=== PATIENT | female | born 1990 | race Caucasian/White ===

== ENCOUNTER 2017-10-21 11:28 | Emergency (ER) | payer MEDICAID ==
[~2017-10-21] VITALS: Ht 167.6 cm; Wt 122.0 kg
[~2017-10-21 11:28] MED LIST: ALBU18HF2 IH; ALBU18HF2 INH; CIPR2.5D18 OP; CYCL-1 PO; MEDR10TA PO; MUPI15CR TP; NO HOME MEDS; ORPH100T2 PO; PHEN-716 PO; TRAM50TA2 PO; VAL5T PO; ZOF4T PO
[2017-10-21] MEDS ORDERED: ketorolac trometh inj. 60 MG/2 ML VIAL IM ONE (12:30)
[2017-10-21] MEDS ORDERED: TRAM50TA2 PO (12:30)
[2017-10-21] MEDS ORDERED: CYCL-1 PO (12:30)
[2017-10-21] MEDS ORDERED: DICL50TA8 PO (12:30)
[2017-10-21 12:59] VITALS: BP 136/78
== END 2017-10-21 13:02 | disposition home or self-care (01) ==
LOC: ER 11:29
DX: M54.5 Low back pain (principal); G89.29 Other chronic pain; J45.909 Unspecified asthma, uncomplicated; Z98.890 Other specified postprocedural states; Z88.0 Allergy status to penicillin; Z79.899 Other long term (current) drug therapy
CPT/HCPCS: 96372; 99283; J1885

== ENCOUNTER 2017-11-30 11:42 | Emergency (ER) | payer MEDICAID ==
[~2017-11-30] VITALS: Ht 578.2 cm; Wt 117.5 kg
[~2017-11-30 11:42] MED LIST changes: +DICL50TA8 PO
[2017-11-30 11:47] VITALS: BP 170/99
[2017-11-30] MEDS ORDERED: ketorolac trometh inj. 60 MG/2 ML VIAL IM ONE (13:05)
[2017-11-30] MEDS ORDERED: CYCL-1 PO (13:06)
== END 2017-11-30 13:37 | disposition home or self-care (01) ==
LOC: ER 11:42
DX: M54.5 Low back pain (principal); G89.29 Other chronic pain; J45.909 Unspecified asthma, uncomplicated; Z98.890 Other specified postprocedural states; Z88.0 Allergy status to penicillin; Z79.899 Other long term (current) drug therapy
CPT/HCPCS: 96372; 99283; J1885

== ENCOUNTER 2019-04-16 17:59 | Emergency (ER) | payer MEDICAID ==
[~2019-04-16] VITALS: Ht 175.3 cm; Wt 113.6 kg
[2019-04-16 18:06] VITALS: BP 127/89
[2019-04-16] MEDS ORDERED: CEFD300C3 PO (18:56)
== END 2019-04-16 19:04 | disposition home or self-care (01) ==
LOC: ER 18:00
DX: J32.9 Chronic sinusitis, unspecified (principal); J45.909 Unspecified asthma, uncomplicated; G89.29 Other chronic pain; Z98.890 Other specified postprocedural states; Z88.0 Allergy status to penicillin; Z79.899 Other long term (current) drug therapy
CPT/HCPCS: 99283

== ENCOUNTER 2021-04-28 23:35 | Emergency (ER) | payer MEDICAID ==
[~2021-04-28] VITALS: Ht 167.6 cm; Wt 122.7 kg
[~2021-04-28 23:35] MED LIST changes: -CIPR2.5D18 OP; +CIPR2.5D21 OP; +DIAZ5TAB22 PO; -VAL5T PO
[2021-04-28 23:41] VITALS: BP 131/77
[2021-04-29] MEDS ORDERED: HYDROcodone/acetaminophen 10/325mg tab PO ONE (01:55)
[2021-04-29] MEDS ORDERED: HYDR-3972 PO (02:01)
[2021-04-29] MEDS ORDERED: IBUP-1986 PO (02:01)
== END 2021-04-29 02:24 | disposition home or self-care (01) ==
LOC: ER 23:36
DX: S49.91XA Unspecified injury of right shoulder and upper arm, initial encounter (principal); W18.39XA Other fall on same level, initial encounter; Y93.89 Activity, other specified; Y92.89 Other specified places as the place of occurrence of the external cause; Y99.8 Other external cause status
CPT/HCPCS: 73030; 99283

== ENCOUNTER 2022-04-28 01:00 | Emergency (ER) | payer MEDICAID ==
[~2022-04-28] VITALS: Ht 167.6 cm; Wt 270.0 kg
[~2022-04-28 01:00] MED LIST changes: +IBUP-1986 PO
[2022-04-28 01:03] VITALS: BP 147/93
== END 2022-04-28 11:43 | disposition left against medical advice (07) ==
LOC: ER 01:01
DX: T78.40XA Allergy, unspecified, initial encounter (principal); Z53.21 Procedure and treatment not carried out due to patient leaving prior to being seen by health care provider; Y92.89 Other specified places as the place of occurrence of the external cause

== ENCOUNTER 2023-02-07 23:11 | Emergency (ER) | payer MEDICAID ==
[~2023-02-07] VITALS: Ht 167.6 cm; Wt 122.7 kg
[~2023-02-07 23:11] MED LIST changes: -ORPH100T2 PO; +ORPH100T4 PO
[2023-02-07 23:29] VITALS: BP 171/108; PULSE 79; RESP 14; TEMP 98.7; O2SAT 100
[2023-02-08] MEDS ORDERED: cephalexin 250mg capsule PO ONE (01:05)
[2023-02-08] MEDS ORDERED: CEPH250T PO (01:05)
[2023-02-08] MEDS ORDERED: ondansetron 4mg rapidly disintigrating tab PO ONE (01:05)
== END 2023-02-08 01:30 | disposition home or self-care (01) ==
LOC: ER 23:11
DX: L03.116 Cellulitis of left lower limb (principal); J45.909 Unspecified asthma, uncomplicated; G89.29 Other chronic pain; Z79.899 Other long term (current) drug therapy; Z79.2 Long term (current) use of antibiotics; Z88.0 Allergy status to penicillin
CPT/HCPCS: 99284

== ENCOUNTER 2024-07-18 13:04 | Emergency (ER) | payer MEDICAID ==
[~2024-07-18] VITALS: Ht 167.6 cm; Wt 119.5 kg
[2024-07-18 14:00] LABS: BASOPHILS % (AUTO) 0.5 % (0-1); EOSINOPHILS # (AUTO) 0.3 X10'3 (0-0.9); EOSINOPHILS % (AUTO) 3.6 % (0-6); HEMOGLOBIN 12.7 g/dl (12.0-16.0); LYMPHOCYTES % (AUTO) 30.5 % (21-51); MEAN CORPUSCULAR HGB CONC 34.4 g/dL (33.0-36.5); MEAN CORPUSCULAR VOLUME 93.1 FL (78-98); MEAN PLATELET VOLUME 10.4 FL (7.4-10.4); MONOCYTES # (AUTO) 0.5 X10'3 (0-0.9); MONOCYTES % (AUTO) 5.1 % (2-12); NEUTROPHILS # (AUTO) 5.9 X10'3 (1.8-7.7); NEUTROPHILS % (AUTO) 60.3 % (42-75); PLATELET COUNT 240 X10'3 (140-440); RED BLOOD COUNT 3.98 X10'6 (4.20-5.60); RED CELL DISTRIBUTION WIDTH 13.4 % (11.5-14.5); WHITE BLOOD COUNT 9.7 X10'3 (4.5-11.0)
[2024-07-18 14:26] LABS: ALANINE AMINOTRANSFERASE 28 U/L (12-78); ALBUMIN 3.6 G/DL (3.4-5.0); ALBUMIN/GLOBULIN RATIO 1.1 (1.1-1.5); ALKALINE PHOSPHATASE 92 IU/L (46-116); ANION GAP 6 (8-16); ASPARTATE AMINO TRANSFERASE 15 U/L (10-37); BILIRUBIN,TOTAL 0.3 MG/DL (0.1-1.0); BLOOD UREA NITROGEN 7 MG/DL (7-18); CHLORIDE 107 MMOL/L (99-107); GLUCOSE 93 MG/DL (70-104); LIPASE 60 U/L (16-77); POTASSIUM 4.1 MMOL/L (3.5-5.1); SODIUM 143 MMOL/L (135-145); TOTAL CARBON DIOXIDE 29.8 MMOL/L (24-32); eCRCL 105 ML/MIN; eGFR > 90 ML/MIN
[2024-07-18 14:40] LABS: BILIRUBIN,URINE NEGATIVE (Neg); CLARITY,URINE CLEAR (Clear); COLOR,URINE YELLOW (Yellow); GLUCOSE, URINE NEGATIVE (Neg); KETONES,URINE NEGATIVE (Neg); LEUKOCYTE ESTERASE ,URINE NEGATIVE (Neg); NITRITES, URINE NEGATIVE (Neg); OCCULT BLOOD,URINE NEGATIVE (Neg); PH,URINE 6.5 (4.8-8.0); PROTEIN,URINE NEGATIVE (Neg); UROBILINOGEN,URINE 0.2 E.U/dL (0.2-1.0)
[2024-07-18 14:43] LABS: UA COLLECTION TYPE CLN CATCH MIDSTREAM
[2024-07-18 14:49] LABS: URINE HCG NEGATIVE (NEG)
[2024-07-18 16:01] VITALS: BP 134/75; PULSE 59; TEMP 98.1; O2SAT 99
[2024-07-18] MEDS: HYDROcodone/acetaminophen 10/325mg tab PO ONE (17:11)
[2024-07-18 17:12] VITALS: RESP 16
[2024-07-18] MEDS: ketorolac trometh 30MG/ML vial 30 MG/ML VIAL IM ONE (17:12)
[2024-07-18] MEDS ORDERED: NAPR-996 PO (17:52)
[2024-07-18] MEDS ORDERED: HYDR-3965 PO (17:52)
== END 2024-07-18 18:05 | disposition home or self-care (01) ==
LOC: ER 13:04
DX: S22.089A Unspecified fracture of T11-T12 vertebra, initial encounter for closed fracture (principal); J45.909 Unspecified asthma, uncomplicated; F31.9 Bipolar disorder, unspecified; Z88.0 Allergy status to penicillin; Z98.890 Other specified postprocedural states; W19.XXXA Unspecified fall, initial encounter; Y93.89 Activity, other specified; Y92.89 Other specified places as the place of occurrence of the external cause; Y99.8 Other external cause status
CPT/HCPCS: 36415; 72100; 80053; 81003; 81025; 83690; 85025; 96372; 99284; J1885

== ENCOUNTER 2025-04-20 13:58 | Emergency (ER) | payer MEDICAID ==
[~2025-04-20] VITALS: Ht 167.6 cm; Wt 110.4 kg
[~2025-04-20 13:58] MED LIST changes: +NAPR-1168 PO
--- NOTE | 2025-04-20 14:09 | ELECTROCARDIOGRAPH REPORT ---
[facility] Test Date: 2025-04-20 Test Time: 14:02:58 Pat Name: DELORIS SAUCEDA Department: EMERGENCY ROOM [id number] Room: Gender: F Chart Calculator: MAG : 1990 Requested By: TALIA BARBA Order Number: [id number] Reading MD: Dr. VONDA Severino Measurements Intervals [place] Rate: 65 P: 58 IN: 151 QRS: 44 QRSD: 101 T: 17 QT: 387 QTc: 403 Interpretive Statements Sinus arrhythmia Low voltage, precordial leads Baseline wander in lead(s) II Electronically Signed On 04-21-2025 11:48:[address] VONDA Severino Please click the below link to view image of tracing.
[2025-04-20 14:41] LABS: MEAN PLATELET VOLUME 10.4 FL (7.4-10.4); RED CELL DISTRIBUTION WIDTH 12.8 % (11.5-14.5)
[2025-04-20 15:00] LABS: CREATININE 0.71 MG/DL (0.40-0.90); PRO BRAIN NATRIURETIC PEPTIDE 79 PG/ML (0-125); TOTAL CARBON DIOXIDE 27.3 MMOL/L (24-32); eCRCL 103 ML/MIN; eGFR > 90 ML/MIN
--- NOTE | 2025-04-20 15:19 | RADIOLOGY REPORT ---
EXAM: DI CHEST,SINGLE VIEW HISTORY: CP TECHNIQUE: 1 view of the chest COMPARISON: None FINDINGS/IMPRESSION: LUNGS: No pleural effusion, consolidation, or pneumothorax. MEDIASTINUM: Unremarkable. BONES: No acute osseous abnormality. OTHER: None.
--- NOTE | 2025-04-20 17:25 | Physician Documentation ---
History of Present Illness ~ General Chief Complaint: Bradycardia Stated Complaint: LOW HEART RATE Time Seen by MD: 16:04 Primary Medical Doctor: [facility] Source: patient Mode of Arrival: POV Exam Limitations: no limitations History of Present Illness Initial Comments 34-year-old female who higher than to concern about low heart rate was noted on her apple watch and she states she also felt lightheaded. She currently is asymptomatic. Denies lightheadedness. No syncopal history. No cp, sob, abdominal pain, nausea, vomiting. Medication Reconciliation Allergies: Coded Allergies: Penicillins (Unverified Allergy, Unknown, 04/20/25) Scheduled Albuterol Sulfate (Ventolin Hfa), 2 PUFFS IH 5XD Albuterol Sulfate (Ventolin Hfa), 2 PUFFS INH Q4HPRN Ciprofloxacin Hcl Ophth* (Ciloxan 0.35 Ophth Drops*), 2 DROP OP Q4HWA Diclofenac Sodium (Diclofenac Sodium), 1 TAB PO Q12H Ibuprofen (Ibuprofen), 1 TAB PO Q8H Medroxyprogesterone Acet (Provera), 1 TABLET PO DAILY Mupirocin Calcium (Bactroban), 1 APPLIC TP TID Naproxen (Naproxen), 1 TAB PO Q12H Ondansetron ODT* (Zofran ODT*), 4 MG PO Q6H Orphenadrine Citrate (Norflex), 1 TABLET PO BID Phenazopyridine HCl (Pyridium), 1 TABLET PO TID Tramadol Hcl (Tramadol Hcl), 50-100 MG PO Q6H Scheduled PRN Cyclobenzaprine* (Cyclobenzaprine*), 1 TABLET PO Q8H PRN for muscle spasms Cyclobenzaprine* (Cyclobenzaprine*), 1 TABLET PO Q8H PRN for muscle spasms Cyclobenzaprine* (Cyclobenzaprine*), 1 TABLET PO Q8H PRN for muscle spasms Diazepam* (Valium*), 5 MG PO TID PRN Miscellaneous Medications Home Med List (No Home Medications), (Reported) Past Medical History Past Medical History: Headache, Sinusitis, Asthma, Chronic Back Pain, Bipolar Past Surgical History: orthopedic surgeries Alcohol Use: None Drug Use: none Lives with: Family Lives In: Home Occupation: employed Review of Systems All Other Systems at this time: Reviewed and Negative Physical Exam Physical Exam Vital Signs: Temperature: 97.7, Source: Temporal, Heart Rate: 59, Respiratory Rate: 14, BP: 122/82, Pulse Oximetry: 100, Weight: 110.400 Oxygen Flow Rate: 0 Physical Exam GENERAL: Alert, no acute distress. HEENT: NCAT, EOMI, PERRL, normal oropharynx, moist oral mucosa. NECK: Supple, trachea midline. CARDIAC: Regular rate and rhythm, no murmurs, rubs, or gallops. Equal distal pulses. No lower extremity edema, cap refill less than 2 seconds. RESPIRATORY: Equal breath sounds, clear to auscultation bilaterally, no respiratory distress. GASTROINTESTINAL: Non distended, soft, nontender, No guarding or rebound. MUSCULOSKELETAL: Normal range of motion, nontender, no swelling. Normal gait. NEUROLOGICAL: Awake, alert, and oriented x 3. SKIN: Warm/dry, no pallor, no rash. PSYCH: Alert and appropriate. Affect congruent with mood. Speech is clear. Good eye contact. Progress Results/Orders Results/Orders Vital Signs 04/20/25 04/20/25 04/20/25 04/20/25 14:04 16:07 16:08 17:30 Temp 97.7 Pulse 68 59 65 Resp 20 14 16 B/P (MAP) 144/87 122/82 (95) 132/89 (103) Pulse Ox 99 100 99 O2 Flow Rate 0 0 0 04/20/25 18:05 Temp 97.7 B/P (MAP) Laboratory Tests Test 04/20/25 14:07 04/20/25 16:15 White Blood Count 8.4 Red Blood Count 4.30 Hemoglobin 13.5 Hematocrit 39.5 Mean Corpuscular Volume 91.9 Mean Corpuscular Hemoglobin 31.3 H Mean Corpuscular Hemoglobin Concent 34.1 Red Cell Distribution Width 12.8 Platelet Count 267 Mean Platelet Volume 10.4 Neutrophils (%) (Auto) 64.4 Lymphocytes (%) (Auto) 24.0 Monocytes (%) (Auto) 5.9 Eosinophils (%) (Auto) 5.1 Basophils (%) (Auto) 0.6 Neutrophils # (Auto) 5.4 Lymphocytes # (Auto) 2.0 Monocytes # (Auto) 0.5 Eosinophils # (Auto) 0.4 Basophils # (Auto) 0.1 CBC Comment Sodium Level 140 Potassium Level 4.3 Chloride Level 108 H Carbon Dioxide Level 27.3 Anion Gap 5 L Blood Urea Nitrogen 11 Creatinine 0.71 Estimated GFR/1.73 m2 > 90 BUN/Creatinine Ratio 15.5 Glucose Level 77 Calcium Level 8.3 L Troponin I High Sensitivity 4 < 4 L Pro-B-Type Natriuretic Peptide 79 Albumin 3.8 Chemistry Comments Troponin I High Sens Percent Delta Troponin I Hi Sens Absolute Change Medical Decision Making Additional information obtaine: N/A Findings n/a Differential Diagnosis sick sinus syndrome, hypothyroidism, sinus bradycardia, metabolic/electrolyte abnormality Departure Time of Disposition: 17:20 Disposition: 01 HOME / SELF CARE / HOMELESS Impression: Primary Impression: Bradycardia Condition: Stable Discharge Instructions: Bradycardia, Adult Additional Instructions: F/U WITH PCP LABS NORMAL FOCUS ON HYDRATION Referrals: NO PRIMARY CARE PROVIDER (PCP) Education Educated: Patient Educated regarding: diagnosis, treatment, need for follow up Signature Scribe Signature: x Attestation: RUIZ Rodriguez Apr 20, 2025 17:25
[2025-04-20 17:30] VITALS: BP 132/89; PULSE 65; RESP 16; O2SAT 99
[2025-04-20 18:05] VITALS: TEMP 97.7
== END 2025-04-20 18:06 | disposition home or self-care (01) ==
LOC: ER 13:59
DX: R00.1 Bradycardia, unspecified (principal); R06.02 Shortness of breath; F31.9 Bipolar disorder, unspecified; J45.909 Unspecified asthma, uncomplicated; Z88.0 Allergy status to penicillin; Z88.8 Allergy status to other drugs, medicaments and biological substances
CPT/HCPCS: 36415; 71045; 80048; 83880; 84484; 85025; 93005; 99285